=== PATIENT | female | born 1960 | race Two or more races ===

== ENCOUNTER 2024-06-03 09:41 | Outpatient (CLI) | payer OTHER | END 2024-06-03 09:51 | disposition home or self-care (01) | LOC: MAMO-SONO 09:41 | PROVIDERS: ATTEND Internal Medicine Endocrinology, Diabetes & Metabolism | DX: N16 Renal tubulo-interstitial disorders in diseases classified elsewhere (principal); Z12.31 Encounter for screening mammogram for malignant neoplasm of breast; E04.1 Nontoxic single thyroid nodule ==

== ENCOUNTER → 2024-06-03 11:29 | Outpatient (CLI) | payer OTHER ==
[2024-06-03 12:11] LABS: URINE APPEARANCE Cloudy; URINE BILIRRUBIN Negative (NEGATIVE); URINE BLOOD Negative; URINE COLOR Yellow; URINE GLUCOSE Negative (NEGATIVE); URINE KETONE Negative (NEGATIVE); URINE LEUKOCYTE Negative; URINE NITRATE Negative; URINE PROTEIN Negative (NEGATIVE); URINE UROBILINOGEN 0.2 E.U./dl
[2024-06-03 12:12] LABS: URINE BACTERIA 757.2 uL (0.0-1933); URINE EPITHELIAL CELLS 75.5 uL (0.0-38.8)
[2024-06-03 12:27] LABS: HEMATOCRIT 38.3 % (36.0-45.00); HEMOGLOBIN 12.8 g/dL (12.0-15.00); MEAN CELL VOLUME 86.9 fL (80.00-100.00); MEAN CORPUSCULAR HEMOGLOBIN 29.1 pg (27.00-32.0); MEAN CORPUSCULAR HGB CONC 33.4 g/dl (32.0-36.0); PLATELET COUNT 196 K/uL (150-450); RED CELL DISTRIBUTION WIDTH 14.2 % (11.5-14.5)
[2024-06-03 12:42] LABS: ERYTHROCYTE SEDIMENTATION RATE 48 mm/hr
[2024-06-03 13:16] LABS: ALBUMIN 3.7 gm/dL (3.4-5.0); BILIRUBIN TOTAL 0.44 mg/dL (0.3-1.2); CALCIUM 10.2 mg/dL (8.5-10.1); CHOL HDL RATIO 2.7 (0-5.0); CREATININE SERUM 0.85 mg/dL (0.55-1.02); FERRITIN 199.3 NG/ML (8-252); FREE TRIODOTIRONINE 2.44 pg/ml (2.18-3.98); GFR 67.55; GLOBULINA 3.8 G/DL (2.4-3.5); MAGNESIUM 2.3 mg/dL (1.8-2.4); PHOSPHOROUS 3.1 mg/dL (2.5-4.9); POTASSIUM 4.43 mEq/L (3.5-5.1); T4 FREE 0.84 NG/ML (0.76-1.46); TOTAL PROTEIN 7.5 gm/dL (6.4-8.2)
[2024-06-03 13:18] LABS: C-REACTIVE PROTEIN 0.49 MG/DL (0.00-0.29)
[2024-06-03 13:32] LABS: CORTISOL 6.27 ug/dl; FOLIC ACID 15.14 ng/ml (4.78-20); VITAMIN D3 25 HYDROXY 48.96 ng/ml (30-120)
[2024-06-05 07:09] LABS: ACTH 27.8 pg/mL (7.2-63.3); INSULIN LEVELS 14.4 uIU/mL (2.6-24.9)
[2024-06-05 09:08] LABS: DHEA-SULFATE 93.6 ug/dL (29.4-220.5); FOLLICLE STIMULATING HORMONE 42.7 mIU/mL (25.8-134.8); HOMOCYSTEINE 10.1 umol/L (0.0-17.2); LEUTEINIZING HORMONE 35.4 mIU/mL (7.7-58.5); PROGESTERONA < 0.1 ng/mL (.); PROLACTIN 5.8 ng/mL (3.6-25.2)
== END | disposition home or self-care (01) ==
LOC: LAB 11:29
PROVIDERS: ATTEND Internal Medicine Endocrinology, Diabetes & Metabolism
DX: E11.65 Type 2 diabetes mellitus with hyperglycemia (principal); E03.9 Hypothyroidism, unspecified; D64.9 Anemia, unspecified; E53.8 Deficiency of other specified B group vitamins; E78.2 Mixed hyperlipidemia; E22.1 Hyperprolactinemia; E55.9 Vitamin D deficiency, unspecified; R79.82 Elevated C-reactive protein (CRP); E72.11 Homocystinuria; R70.0 Elevated erythrocyte sedimentation rate; N39.0 Urinary tract infection, site not specified; N92.5 Other specified irregular menstruation

== ENCOUNTER 2024-06-11 12:01 | Outpatient (CLI) | payer OTHER ==
[2024-06-11 13:09] LABS: ob NEGATIVE (NEGATIVE)
== END 2024-06-11 12:03 | disposition home or self-care (01) ==
LOC: LAB 12:01
PROVIDERS: ATTEND Internal Medicine Endocrinology, Diabetes & Metabolism
DX: E11.65 Type 2 diabetes mellitus with hyperglycemia (principal); E03.9 Hypothyroidism, unspecified; D64.9 Anemia, unspecified; E78.2 Mixed hyperlipidemia; E53.8 Deficiency of other specified B group vitamins; E22.1 Hyperprolactinemia; E55.9 Vitamin D deficiency, unspecified; R79.82 Elevated C-reactive protein (CRP); E72.11 Homocystinuria; R70.0 Elevated erythrocyte sedimentation rate; N39.0 Urinary tract infection, site not specified; N92.5 Other specified irregular menstruation

== ENCOUNTER 2024-06-11 13:01 | Outpatient (CLI) | payer OTHER | END 2024-06-11 13:04 | disposition home or self-care (01) | LOC: NUCLEAR 13:01 | PROVIDERS: ATTEND Internal Medicine Endocrinology, Diabetes & Metabolism | DX: M81.0 Age-related osteoporosis without current pathological fracture (principal) ==

== ENCOUNTER 2024-09-01 10:30 | Outpatient (CLI) | payer OTHER | END 2024-09-01 10:36 | disposition home or self-care (01) | LOC: SONOGRAMA 10:30 | PROVIDERS: ATTEND Pathology Anatomic Pathology & Clinical Pathology | DX: E04.1 Nontoxic single thyroid nodule (principal); D34 Benign neoplasm of thyroid gland ==

== ENCOUNTER 2024-11-04 10:28 | Outpatient (CLI) | payer OTHER | END 2024-11-04 10:35 | disposition home or self-care (01) | LOC: RAD 10:28 | PROVIDERS: ATTEND Specialist | DX: M51.34 Other intervertebral disc degeneration, thoracic region (principal); M51.360 Other intervertebral disc degeneration, lumbar region with discogenic back pain only; M81.0 Age-related osteoporosis without current pathological fracture ==

== ENCOUNTER → 2024-11-05 06:39 | Outpatient (CLI) | payer OTHER ==
[2024-11-05 08:33] LABS: CALCIUM 10.1 mg/dL (8.5-10.1); CREATININE SERUM 0.97 mg/dL (0.55-1.02); POTASSIUM 3.79 mEq/L (3.5-5.1)
== END | disposition home or self-care (01) ==
LOC: LAB 06:39
PROVIDERS: ATTEND Specialist
DX: E83.52 Hypercalcemia (principal)

== ENCOUNTER 2024-11-22 07:54 | Outpatient (CLI) | payer OTHER ==
[2024-11-22 09:31] LABS: ALBUMIN 3.8 gm/dL (3.4-5.0); CALCIUM 10.7 mg/dL (8.5-10.1); CHOL HDL RATIO 2.5 (0-5.0); CREATININE SERUM 0.98 mg/dL (0.55-1.02); GFR 57.32; POTASSIUM 3.9 mEq/L (3.5-5.1); TSH 2.46 uIU/mL (0.358-3.74)
[2024-11-22 09:36] LABS: HEMATOCRIT 38.9 % (36.0-45.00); HEMOGLOBIN 13.8 g/dL (12.0-15.00); MEAN CELL VOLUME 84.9 fL (80.00-100.00); MEAN CORPUSCULAR HEMOGLOBIN 30.2 pg (27.00-32.0); MEAN CORPUSCULAR HGB CONC 35.6 g/dl (32.0-36.0); PLATELET COUNT 210 K/uL (150-450); RED BLOOD COUNT 4.58 M/uL (4.00-6.00)
== END 2024-11-22 07:59 | disposition home or self-care (01) ==
LOC: LAB 07:54
DX: E78.2 Mixed hyperlipidemia (principal); Z13.6 Encounter for screening for cardiovascular disorders; E66.09 Other obesity due to excess calories

== ENCOUNTER 2025-02-26 08:10 | Outpatient (CLI) | payer OTHER ==
[2025-02-26 08:38] LABS: BASO % 1.6 % (0.1-1.2); EOS # 0.09 (0.04-0.54); HEMATOCRIT 39.3 % (34.1-44.9); HEMOGLOBIN 12.8 g/dL (11.2-15.7); LYMPH # 1.52 (1.18-3.74); LYMPH % 34.1 % (19.3-53.1); MEAN CORPUSCULAR HEMOGLOBIN 28.5 pg (25.6-32.2); MONO # 0.39 (0.24-0.82); MONO % 8.7 % (4.7-12.5); NEUT # 2.38 (1.56-6.13); NEUT % 53.4 % (34.0-71.1); PLATELET COUNT 212 K/uL (163-369); RED BLOOD COUNT 4.49 M/uL (3.93-5.22); RED CELL DISTRIBUTION WIDTH 13.6 % (11.6-14.4)
[2025-02-26 09:12] LABS: URINE APPEARANCE Cloudy; URINE BILIRRUBIN Negative (NEGATIVE); URINE BLOOD Negative; URINE COLOR Yellow; URINE GLUCOSE Negative (NEGATIVE); URINE KETONE Negative (NEGATIVE); URINE LEUKOCYTE Trace; URINE NITRATE Negative; URINE PROTEIN Negative (NEGATIVE)
[2025-02-26 09:14] LABS: URINE BACTERIA 1085.5 uL (0.0-1933); URINE EPITHELIAL CELLS 114.7 uL (0.0-38.8); URINE RBC 41.2 uL (0.0-20.8); URINE WBC 17.4 uL (0.0-23.2)
[2025-02-26 09:17] LABS: URINE CAST 0.14 uL (0.0-1.40)
[2025-02-26 09:35] LABS: ALBUMIN 3.6 gm/dL (3.4-5.0); BILIRUBIN TOTAL 0.47 mg/dL (0.3-1.2); CHOL HDL RATIO 2.4 (0-5.0); CREATININE SERUM 0.94 mg/dL (0.55-1.02); GFR 59.95; GLOBULINA 3.7 G/DL (2.4-3.5); POTASSIUM 3.48 mEq/L (3.5-5.1); T4 FREE 0.89 NG/ML (0.76-1.46); TOTAL PROTEIN 7.3 gm/dL (6.4-8.2); TSH 2.06 uIU/mL (0.358-3.74)
[2025-02-26 12:02] LABS: VITAMIN D3 25 HYDROXY 68.92 ng/ml (30-120)
== END 2025-02-26 08:11 | disposition home or self-care (01) ==
LOC: LAB 08:10
PROVIDERS: ATTEND Internal Medicine Endocrinology, Diabetes & Metabolism
DX: E11.65 Type 2 diabetes mellitus with hyperglycemia (principal); E03.9 Hypothyroidism, unspecified; D64.9 Anemia, unspecified; E53.8 Deficiency of other specified B group vitamins; I10 Essential (primary) hypertension; E55.9 Vitamin D deficiency, unspecified; N39.0 Urinary tract infection, site not specified

== ENCOUNTER 2025-05-16 08:37 | Outpatient (CLI) | payer OTHER ==
[2025-05-16 09:45] LABS: BUN CREA RATIO 15.0 (7.0-25.0); CHOL HDL RATIO 2.3 (0-5.0); CREATININE SERUM 1.02 mg/dL (0.55-1.02); GFR 54.56; GLUCOSE FASTING 104.0 mg/dL (65-100); HDL 83.0 mg/dl (40-60); LDL 85.0 mg/dl (0-130); OSMOLALITY SERUM 286.0 MOSM/KG (275-295); VLDL 27.0 (0-39)
== END 2025-05-16 08:41 | disposition home or self-care (01) ==
LOC: LAB 08:37
DX: E78.00 Pure hypercholesterolemia, unspecified (principal); I10 Essential (primary) hypertension

== ENCOUNTER 2025-07-14 09:25 | Outpatient (CLI) | payer OTHER ==
[2025-07-14 10:11] LABS: BASO % 1.9 % (0.1-1.2); EOS # 0.07 (0.04-0.54); EOS % 1.7 % (0.7-7.0); LYMPH # 1.70 (1.18-3.74); LYMPH % 41.2 % (19.3-53.1); MEAN PLATELET VOLUME 11.30 fl (9.4-12.4); MONO # 0.38 (0.24-0.82); MONO % 9.2 % (4.7-12.5); NEUT # 1.88 (1.56-6.13); NEUT % 45.5 % (34.0-71.1); RED CELL DISTRIBUTION WIDTH 13.2 % (11.6-14.4)
[2025-07-14 10:18] LABS: URINE APPEARANCE Clear; URINE BILIRRUBIN Negative (NEGATIVE); URINE BLOOD Negative; URINE COLOR Yellow; URINE GLUCOSE Negative (NEGATIVE); URINE KETONE Negative (NEGATIVE); URINE LEUKOCYTE Trace; URINE NITRATE Negative; URINE PROTEIN Negative (NEGATIVE); URINE UROBILINOGEN 1.0 E.U./dl
[2025-07-14 10:22] LABS: URINE BACTERIA 445.2 uL (0.0-1933); URINE EPITHELIAL CELLS 43.0 uL (0.0-38.8); URINE RBC 10.4 uL (0.0-20.8); URINE WBC 10.9 uL (0.0-23.2)
[2025-07-14 10:24] LABS: URINE CAST 0.00 uL (0.0-1.40)
[2025-07-14 11:14] LABS: ALT/SGPT 21.0 U/L (12-78); AST/SGOT 13.0 U/L (15-37); BILIRUBIN TOTAL 0.55 mg/dL (0.3-1.2); BUN CREA RATIO 21.0 (7.0-25.0); CHOL HDL RATIO 2.4 (0-5.0); CREATININE SERUM 1.0 mg/dL (0.55-1.02); FREE TRIODOTIRONINE 2.08 pg/ml (2.18-3.98); GFR 55.82; GLOBULINA 3.3 G/DL (2.4-3.5); GLUCOSE FASTING 103.0 mg/dL (65-100); HDL 86.0 mg/dl (40-60); LDL 94.0 mg/dl (0-130); OSMOLALITY SERUM 284.0 MOSM/KG (275-295); T4 FREE 0.87 NG/ML (0.76-1.46); TSH 1.51 uIU/mL (0.358-3.74); VLDL 22.0 (0-39)
== END 2025-07-14 09:32 | disposition home or self-care (01) ==
LOC: LAB 09:25
DX: E03.9 Hypothyroidism, unspecified (principal); D64.9 Anemia, unspecified; E78.2 Mixed hyperlipidemia; I10 Essential (primary) hypertension; N39.0 Urinary tract infection, site not specified

== ENCOUNTER 2025-07-14 10:10 | Outpatient (CLI) | payer OTHER | END 2025-07-14 10:12 | disposition home or self-care (01) | LOC: MAMO-SONO 10:10 | PROVIDERS: ATTEND Internal Medicine Endocrinology, Diabetes & Metabolism | DX: N64.0 Fissure and fistula of nipple (principal); Z12.31 Encounter for screening mammogram for malignant neoplasm of breast; E04.1 Nontoxic single thyroid nodule ==